=== PATIENT | male | born 1955 | race Hispanic/Latino ===

== ENCOUNTER → 2023-03-16 | Outpatient (CLI) | payer MEDICARE | END | disposition home or self-care (01) | LOC: RAH 12:50 | PROVIDERS: ATTEND Student in an Organized Health Care Education/Training Program | DX: M75.112 Incomplete rotator cuff tear or rupture of left shoulder, not specified as traumatic (principal); M75.111 Incomplete rotator cuff tear or rupture of right shoulder, not specified as traumatic; M75.42 Impingement syndrome of left shoulder; M75.21 Bicipital tendinitis, right shoulder; M25.812 Other specified joint disorders, left shoulder | CPT/HCPCS: 73221 ==